=== PATIENT | male | born 1990 | race Caucasian/White ===

== ENCOUNTER 2020-10-01 15:07 | Emergency (ER) | payer OTHER ==
[~2020-10-01] VITALS: Ht 162.6 cm; Wt 99.8 kg
[~2020-10-01 15:07] MED LIST: ABILIFY 5 MG TAB5 M1 PO; ADDERALL XR 2525 MG PO; BENZONATATE100 MG; CELEXA 20 MG TA20 M1; CEPHALEXIN 500500 M1; CLEOCIN HCL300 MG PO; DEPAKOTE ER500 MG PO; DEPAKOTE500 MG; DEPAKOTE500 MG PO; DESYREL; DESYREL50 MG; DESYREL50 MG PO; HYDROCODONE-AP1 EAC6 PO; HYDROXYZINE HCL25 M1; HYDROXYZINE HCL25 M1 OR; IBUPROFEN 800800 M1 PO; MOTRIN 600 MG600 M1 PO; NORCO 5-325 TA1 EACH PO; PROVENTIL HFA6.7 G1 INH; ULTRAM 50MG TAB50 MG PO; WELLBUTRIN XL150 M1
[2020-10-01] MEDS ORDERED: FLEXERIL PO (17:08)
[2020-10-01] MEDS ORDERED: HYDROCODON-ACE1 EAC7 PO (17:08)
[2020-10-01 17:31] VITALS: BP 110/59
== END 2020-10-01 17:31 | disposition home or self-care (01) ==
LOC: M.ERS 15:07
DX: S40.022A Contusion of left upper arm, initial encounter (principal); Z90.49 Acquired absence of other specified parts of digestive tract; Z88.5 Allergy status to narcotic agent; Z88.2 Allergy status to sulfonamides; Z88.0 Allergy status to penicillin; X50.9XXA Other and unspecified overexertion or strenuous movements or postures, initial encounter; Y93.89 Activity, other specified; Y92.89 Other specified places as the place of occurrence of the external cause; Y99.8 Other external cause status

== ENCOUNTER 2020-10-07 12:02 | Emergency (ER) | payer OTHER ==
[~2020-10-07] VITALS: Ht 175.3 cm; Wt 99.8 kg
[~2020-10-07 12:02] MED LIST changes: +FLEXERIL PO; +HYDROCODON-ACE1 EAC7 PO
[2020-10-07] MEDS ORDERED: TRAMADOL 50 MG50 MG PO (14:10)
[2020-10-07 14:13] VITALS: BP 138/70
== END 2020-10-07 14:14 | disposition home or self-care (01) ==
LOC: M.ERS 12:02
DX: S46.812A Strain of other muscles, fascia and tendons at shoulder and upper arm level, left arm, initial encounter (principal); Z90.49 Acquired absence of other specified parts of digestive tract; Z88.5 Allergy status to narcotic agent; Z88.0 Allergy status to penicillin; Z88.2 Allergy status to sulfonamides; X50.9XXA Other and unspecified overexertion or strenuous movements or postures, initial encounter; Y93.89 Activity, other specified; Y92.89 Other specified places as the place of occurrence of the external cause; Y99.8 Other external cause status